=== PATIENT | female | born 1980 | race Native Hawaiian/Other Pacific Islander ===

== ENCOUNTER 2018-12-28 11:49 | Outpatient (CLI) | payer BC | END 2018-12-28 19:11 | disposition home or self-care (01) | LOC: LABW 11:49 | DX: R19.7 Diarrhea, unspecified (principal) | CPT/HCPCS: 83630; 87015; 87045; 87324; 87328; 87329; 87449; 87899 ==

== ENCOUNTER 2020-05-31 00:19 | Emergency (ER) | payer BC ==
[~2020-05-31] VITALS: Ht 167.6 cm; Wt 113.4 kg
[2020-05-31 01:45] VITALS: BP 152/92; TEMP 98
== END 2020-05-31 01:45 | disposition home or self-care (01) ==
LOC: ED 00:19
DX: J06.9 Acute upper respiratory infection, unspecified (principal); Z03.818 Encounter for observation for suspected exposure to other biological agents ruled out
CPT/HCPCS: 87502; 87635; 99283; U0003

== ENCOUNTER 2021-02-09 11:26 | Outpatient (CLI) | payer BC, OTHER | END 2021-02-09 20:35 | disposition home or self-care (01) | LOC: LAB 11:26 | PROVIDERS: ATTEND Nurse Practitioner Family | DX: R50.9 Fever, unspecified (principal); Z20.828 Contact with and (suspected) exposure to other viral communicable diseases | CPT/HCPCS: 87635; G2023; U0003 ==

== ENCOUNTER 2021-02-23 10:43 | Outpatient (CLI) | payer BC, OTHER | END 2021-02-23 20:10 | disposition home or self-care (01) | LOC: RAD 10:43 | PROVIDERS: ATTEND Nurse Practitioner Family | DX: R05 Cough (principal); Z20.822 Contact with and (suspected) exposure to COVID-19 ==